=== PATIENT | female | born 1980 | race African-American/Black ===

== ENCOUNTER 2018-12-20 06:23 | Emergency (ER) | payer MEDICARE, MEDICAID ==
[~2018-12-20] VITALS: Ht 175.3 cm; Wt 86.2 kg
--- NOTE | 2018-12-20 06:39 | Emergency Room Report ---
History of Present Illness General Chief Complaint: Behavioral Complaint Source: Patient Present Illness HPI Patient presents with suicidal ideation. She told the triage nurse that she was planning on overdosing on Advil. She doesn't have any. She states she feels this way for about 30 minutes. To me she just wants a ride to [place]. She also claimed to be to the triage nurse. She also feels feverish. She denies any nausea, vomiting, diarrhea, sore throat, cough, chest pain, abdominal pain. The patient was recently hospitalized at a psychiatric facility. She states that this was in [place]. She states she was not prescribed any medication at discharge. Allergies: Coded Allergies: IBUPROFEN (Verified Allergy, Unknown, 12/20/18) Patient History Past Medical History: see triage record Social History: Denies: smoking, alcohol use Social History Narrative allegedly from [place] Last Menstrual Period: 08/2018 Now: Yes - 4 months (per patient) Reviewed Nursing Documentation: PMH: Agreed; PSxH: Agreed Nursing Documentation-PMH Past Medical History: No History, Except For Hx Gastrointestinal Problems: No - liver cirrhosis Review of Systems All Other Systems: negative except mentioned in HPI Physical Exam Vital Signs Date Time Temp Pulse Resp B/P (MAP) Pulse Ox O2 Delivery O2 Flow Rate FiO2 12/20/18 06:26 98.4 93 18 129/78 98 Room Air Sp02 EP Interpretation: reviewed, normal General Appearance: well appearing, no apparent distress, GCS 15 Head: normocephalic, atraumatic Eyes: bilateral eye normal inspection, bilateral eye PERRL, bilateral eye EOMI ENT: moist mucus membranes Neck: supple Respiratory: lungs clear, normal breath sounds Cardiovascular #1: regular rate, rhythm Cardiovascular #2: 2+ radial (R) Gastrointestinal: normal inspection, normal bowel sounds, non tender, no mass, non-distended, overweight Musculoskeletal: back normal, gait/station normal, normal range of motion Neurologic: alert, motor strength/tone normal, DTRs symmetric, sensory intact, normal gait, speech normal - soft spoken, oriented - X2 Psychiatric: depressed affect Suicide Risk Assessment: Suicidal Ideation: Yes Had intent to initiate attempt: Yes Pt's plan for suicide attempt: Yes Has means to complete attempt: No Skin: normal inspection, warm/dry Medical Decision Making Diagnostic Impression: Primary Impression: Acute exacerbation of chronic schizoaffective schizophrenia Additional Impression: Transient suicidal ideation ER Course Patient presents with multiple complaints but mainly anxiety and suicidal ideation. Differential includes exacerbation of schizophrenia, major depression , schizoaffective disorder, electrolyte imbalance, drug ingestion amongst others. The patient will be observed on a monitoring manager. We will evaluate her with EKG and labs. EKG without injury. Labs unremarkable Zyprexa given. Contact psychiatrist for evaluation. Evaluated and cleared by psychiatrist. Contact her rehab facility and [place]. They states she left to go shopping. She alleges she took a bus to [place]. She denies suicidal ideation at this time. She wants to go back to [place]. She is purposeful and has a plan to return to [place]. She states she has Zyprexa at the facility. Patient stable for outpatient observation and treatment. Laboratory Tests Test 12/20/18 07:15 12/20/18 07:21 White Blood Count 4.3 K/UL (4.8-10.8) L Red Blood Count 4.50 M/UL (4.20-5.40) Hemoglobin 13.0 G/DL (12.0-16.0) Hematocrit 38.0 % (37.0-47.0) Mean Corpuscular Volume 84 FL (80-99) Mean Corpuscular Hemoglobin 28.9 PG (27.0-31.0) Mean Corpuscular Hemoglobin Concent 34.3 G/DL (32.0-36.0) Red Cell Distribution Width 13.5 % (11.6-14.8) Platelet Count 48 K/UL (150-450) L Mean Platelet Volume 11.2 FL (6.5-10.1) H Neutrophils (%) (Auto) % (45.0-75.0) Lymphocytes (%) (Auto) % (20.0-45.0) Monocytes (%) (Auto) % (1.0-10.0) Eosinophils (%) (Auto) % (0.0-3.0) Basophils (%) (Auto) % (0.0-2.0) Differential Total Cells Counted 100 Neutrophils % (Manual) 58 % (45-75) Lymphocytes % (Manual) 30 % (20-45) Monocytes % (Manual) 10 % (1-10) Eosinophils % (Manual) 2 % (0-3) Basophils % (Manual) 0 % (0-2) Band Neutrophils 0 % (0-8) Platelet Estimate Decreased L Platelet Morphology Normal Red Blood Cell Morphology Normal Sodium Level 139 MMOL/L (136-145) Potassium Level 4.3 MMOL/L (3.5-5.1) Chloride Level 106 MMOL/L (98-107) Carbon Dioxide Level 29 MMOL/L (21-32) Anion Gap 4 mmol/L (5-15) L Blood Urea Nitrogen 11 mg/dL (7-18) Creatinine 1.0 MG/DL (0.55-1.30) Estimate Glomerular Filtration Rate > 60 mL/min (>60) Glucose Level 123 MG/DL (74-106) H Calcium Level 8.6 MG/DL (8.5-10.1) Total Bilirubin 1.5 MG/DL (0.2-1.0) H Direct Bilirubin 0.3 MG/DL (0.0-0.3) Aspartate Amino Transferase (AST) 52 U/L (15-37) H Alanine Aminotransferase (ALT) 31 U/L (12-78) Alkaline Phosphatase 159 U/L (46-116) H Total Protein 6.7 G/DL (6.4-8.2) Albumin 3.6 G/DL (3.4-5.0) Globulin 3.1 g/dL Albumin/Globulin Ratio 1.2 (1.0-2.7) Salicylates Level < 0.2 ug/mL (2.8-20) L Acetaminophen Level < 2 MCG/ML (10-30) L Serum Alcohol < 3 mg/dL Urine Color Yellow Urine Appearance Slightly cloudy Urine pH 5 (4.5-8.0) Urine Specific [place] 1.025 (1.005-1.035) Urine Protein 1+ (NEGATIVE) H Urine Glucose (UA) Negative (NEGATIVE) Urine Ketones Negative (NEGATIVE) Urine Blood Negative (NEGATIVE) Urine Nitrite Negative (NEGATIVE) Urine Bilirubin Negative (NEGATIVE) Urine Urobilinogen 4 MG/DL (0.0-1.0) H Urine Leukocyte Esterase 1+ (NEGATIVE) H Urine RBC 0-2 /HPF (0 - 2) Urine WBC 0-2 /HPF (0 - 2) Urine Squamous Epithelial Cells Moderate /LPF (NONE/OCC) H Urine Bacteria Few /HPF (NONE) Urine Mucus Moderate /LPF (NONE/OCC) H Urine HCG, Qualitative Negative (NEGATIVE) Urine Opiates Screen Negative (NEGATIVE) Urine Barbiturates Screen Negative (NEGATIVE) Phencyclidine (PCP) Screen Negative (NEGATIVE) Urine Amphetamines Screen Negative (NEGATIVE) Urine Benzodiazepines Screen Negative (NEGATIVE) Urine Cocaine Screen Negative (NEGATIVE) Urine Marijuana (THC) Screen Negative (NEGATIVE) EKG Diagnostic Results Rate: normal Rhythm: NSR ST Segments: no acute changes - QT of 481 ms Rhythm Strip Diag. Results EP Interpretation: yes Rhythm: NSR, no PVC's, no ectopy Last Vital Signs Date Time Temp Pulse Resp B/P (MAP) Pulse Ox O2 Delivery O2 Flow Rate FiO2 12/20/18 13:17 98.2 77 20 98/75 98 Room Air Status: improved Disposition: HOME, SELF-CARE - Rehab facility and [place] Condition: Improved Scripts No Active Prescriptions or Reported Meds Rodrigo Ornelas MD Dec 20, 2018 06:39
[2018-12-20 07:00] VITALS: BP 129/78
--- NOTE | 2018-12-20 07:00 | NUR ---
ER Nurse Note: Pt BIBA R29 from [facility] c/o abd pain since 399 with SI on advil. Pt unable to OD d/t no advil. Pt is also out of psych meds and is "feeling off". Pt looks unkept, VSS, no signs of distress. Pt stable gait. Pt is asking for juice and being uncooperative. Will endorse to ANTONIO Larios for continuity of care.
[2018-12-20 07:34] LABS: ANION GAP 4 mmol/L (5-15); BLOOD UREA NITROGEN 11 mg/dL (7-18); CALCIUM 8.6 MG/DL (8.5-10.1); CARBON DIOXIDE 29 MMOL/L (21-32); CHLORIDE 106 MMOL/L (98-107); POTASSIUM 4.3 MMOL/L (3.5-5.1); SODIUM 139 MMOL/L (136-145)
[2018-12-20 07:35] LABS: MEAN CORPUSCULAR VOLUME 84 FL (80-99); PLATELET COUNT 48 K/UL (150-450); RED CELL DISTRIBUTION WIDTH 13.5 % (11.6-14.8); WHITE BLOOD COUNT 4.3 K/UL (4.8-10.8)
[2018-12-20 07:47] LABS: APPEARANCE,URINE SLIGHTLY CLOUDY; BILIRUBIN, URINE NEGATIVE (NEGATIVE); GLUCOSE, URINE (UA) NEGATIVE (NEGATIVE); KETONES,URINE NEGATIVE (NEGATIVE); LEUKOCYTE ESTERASE ,URINE 1+ (NEGATIVE); NITRITE,URINE NEGATIVE (NEGATIVE); PH,URINE 5 (4.5-8.0); PROTEIN,URINE 1+ (NEGATIVE); UROBILINOGEN,URINE 4 MG/DL (0.0-1.0)
[2018-12-20 07:48] LABS: ALANINE AMINOTRANSFERASE 31 U/L (12-78); ALBUMIN 3.6 G/DL (3.4-5.0); ALBUMIN/GLOBULIN RATIO 1.2 (1.0-2.7); ALKALINE PHOSPHATASE 159 U/L (46-116); ASPARTATE AMINO TRANSFERASE 52 U/L (15-37); BILIRUBIN,TOTAL 1.5 MG/DL (0.2-1.0)
[2018-12-20 07:49] LABS: BILIRUBIN,DIRECT 0.3 MG/DL (0.0-0.3)
[2018-12-20 07:51] LABS: COLOR,URINE YELLOW
--- NOTE | 2018-12-20 07:56 | NUR ---
ED Nurse Note: Pt asleep in bed comfortably. No complaints of pain or acute distress. Will continue to monitor.
[2018-12-20 09:10] VITALS: BP 92/51
--- NOTE | 2018-12-20 10:34 | NUR ---
ED Nurse Note: Dr. Jimenez at the bedside.
[2018-12-20 11:10] VITALS: BP 101/60
--- NOTE | 2018-12-20 12:00 | NUR ---
spoke to social work professor valarie . patient was seen by dr hernandez from psych . patient can be discharged home patient wants to go back to [facility] [place] [facility] . no transporatatin to go there. called recovery center they will not come to get her. per social work professor she will call the recovery and see if they can arrange the transportation.
--- NOTE | 2018-12-20 12:43 | NUR ---
per zach [facility] or she has to go by ambulance . [facility] they canot take her that far and it is not a medical nececity.
--- NOTE | 2018-12-20 12:46 | NUR ---
spoke to the patient regarding the problem of trasportation which we couldnot provide except a tap card transport but patient agreed that she states she will work it out from the train station
[2018-12-20 13:05] VITALS: BP 100/65
[2018-12-20 13:17] VITALS: BP 98/75
--- NOTE | 2018-12-20 13:18 | NUR ---
ER DISCHARGE NOTE: Patient is cleared to be discharged per ERMD, pt is aox4, on room air, with stable vital signs. pt was given dc and prescription instructions, pt was able to verbalize understanding, pt id band and iv site removed without complications. pt is able to ambulate with steady gait. pt took all belongings. Bus pass, shoes, and socks provided for pt.
--- NOTE | 2018-12-20 23:30 | Consultation ---
DATE OF CONSULTATION: 12/20/2018 CONSULTING PHYSICIAN: Edilson Jimenez M.D. HISTORY OF PRESENT ILLNESS: The patient is a 38-year-old black female with history of schizophrenia who has been admitted due to suicidal ideation. The patient stated to the police that she has suicidal ideation and wanted to take an overdose of Motrin or Advil. Upon evaluation, the patient denied any suicidal or homicidal ideation. She stated that she has been hearing voices, however, when she was given Zyprexa, she is calmer and would like to be discharged back to the facility that she is staying at. Apparently, she is staying in a facility in [place]. She was requesting to be given a bus token and be transferred via Uber or by bus. The patient did not endorse any suicidal or homicidal ideation. She did not endorse any psychotic symptoms. Denied any depressive symptoms. The nurse was present during my evaluation. PAST PSYCHIATRIC HISTORY: Schizophrenia. She has had psychiatric hospitalization in the past. Denied any suicide attempt. PAST MEDICAL HISTORY: Hypertension and hyperlipidemia. ALLERGIES: No known drug allergies. SUBSTANCE ABUSE HISTORY: She denies any illicit drug use or alcohol in the past. MENTAL STATUS EXAMINATION: The patient is alert and oriented x3. Mood is neutral. Affect is blunted, congruent with mood and appropriate. Thought process is linear. Thought content, no suicidal or homicidal ideation. No AVH. No delusions. Insight and judgment is fair. ASSESSMENT: [place] I Schizophrenia. PLAN: The patient will be discharged. She will be given prescription, Zyprexa. She is not an imminent danger to self or others. She is not meeting the criteria for psychiatric hospitalization. Edilson Jimenez M.D. DR: GELA JOB#: [id number] CC:
== END 2018-12-20 13:19 | disposition home or self-care (01) ==
LOC: EDBD 06:23 → EMR 07:30
DX: F20.9 Schizophrenia, unspecified (principal); R45.851 Suicidal ideations
CPT/HCPCS: 36415; 80053; 80307; 81003; 81025; 82248; 85007; 85025; 93005; 99284; G0480; 80329